=== PATIENT | male | born 1980 | race Two or more races ===

== ENCOUNTER 2017-10-12 12:52 | Emergency (ER) | payer MEDICAID ==
[~2017-10-12] VITALS: Ht 160 cm; Wt 67.1 kg
[2017-10-12 13:12] VITALS: BP 123/68
== END 2017-10-12 15:29 | disposition left against medical advice (07) ==
LOC: ER 12:52
DX: M54.9 Dorsalgia, unspecified (principal); Z53.21 Procedure and treatment not carried out due to patient leaving prior to being seen by health care provider